=== PATIENT | male | born 1985 | race Caucasian/White ===

== ENCOUNTER 2016-12-31 04:58 | Emergency (ER) | payer MEDICAID, OTHER ==
[~2016-12-31] VITALS: Ht 175.3 cm; Wt 68.0 kg
[2016-12-31 06:37] LABS: BASOPHILS % 0.5 % (0.0-2.0); EOSINOPHILS % 5.4 % (0.0-5.0); HEMATOCRIT. 41.8 % (42.0-52.0); HEMOGLOBIN. 14.6 g/dL (14.0-18.0); LYMPHOCYTES % 24.5 % (20.0-50.0); MEAN CORPUSCULAR HEMOGLOBIN 32.5 pg (28.0-32.0); MEAN CORPUSCULAR VOLUME 93.2 fL (80.0-94.0); MONOCYTES % 11.6 % (2.0-8.0); PLATELET 217 x1000/uL (130-400); RED BLOOD CELL COUNT 4.49 mill/uL (4.7-6.1); RED CELL DISTRIBUTION WIDTH 13.6 % (11.6-14.6)
[2016-12-31 06:52] LABS: CARBON DIOXIDE 27 mEq/L (21-32); CHLORIDE 108 mEq/L (98-107); ETHANOL BLOOD < 10 mg/dL
[2016-12-31 07:00] VITALS: BP 118/81
[2016-12-31 07:29] LABS: CLARITY URINE CLEAR (CLEAR); COLOR URINE YELLOW (YELLOW); GLUCOSE URINE NEGATIVE (NEGATIVE); KETONES URINE TRACE (NEGATIVE); LEUKOCYTE ESTERASE URINE NEGATIVE (NEGATIVE); NITRITE URINE NEGATIVE (NEGATIVE); OCCULT BLOOD URINE NEGATIVE (NEGATIVE); PROTEIN URINE NEGATIVE (NEGATIVE); SPECIFIC GRAVITY URINE 1.029 (1.005-1.030)
[2016-12-31 08:08] LABS: *AMPHETAMINES SCREEN URINE PRESUMTIVE POSITIVE (NEGATIVE); *BARBITURATES SCREEN URINE NEGATIVE (NEGATIVE); *BENZODIAZEPINES SCREEN URINE NEGATIVE (NEGATIVE); *COCAINE SCREEN URINE NEGATIVE (NEGATIVE); CANNABINOID URINE SCREEN PRESUMTIVE POSITIVE (NEGATIVE); METHADONE URINE SCREEN NEGATIVE (NEGATIVE); OPIATES URINE SCREEN NEGATIVE (NEGATIVE); PHENCYCLIDINE URINE SCREEN NEGATIVE (NEGATIVE)
== END 2016-12-31 07:58 | disposition home or self-care (01) ==
LOC: ER 05:09
DX: F15.982 Other stimulant use, unspecified with stimulant-induced sleep disorder (principal); F17.200 Nicotine dependence, unspecified, uncomplicated
CPT/HCPCS: 36415; 80053; 80305; 81003; 85025; 99284; G0482

== ENCOUNTER 2017-02-10 22:20 | Emergency (ER) | payer MEDICAID ==
[~2017-02-10] VITALS: Ht 172.7 cm; Wt 59.0 kg
[2017-02-11] MEDS: IBUPROFEN 600MG TABLET PO ONE (09:52)
[2017-02-11 10:06] LABS: BASOPHILS % 0.8 % (0.0-2.0); EOSINOPHILS % 6.4 % (0.0-5.0); HEMATOCRIT. 42.7 % (42.0-52.0); HEMOGLOBIN. 14.4 g/dL (14.0-18.0); LYMPHOCYTES % 29.5 % (20.0-50.0); MEAN CORPUSCULAR HEMOGLOBIN 31.6 pg (28.0-32.0); MEAN CORPUSCULAR VOLUME 93.7 fL (80.0-94.0); MEAN PLATELET VOLUME 7.9 fl (7.4-10.4); MONOCYTES % 8.1 % (2.0-8.0); NEUTROPHILS % 55.2 % (40.0-76.0); PLATELET 267 x1000/uL (130-400); RED BLOOD CELL COUNT 4.56 mill/uL (4.7-6.1); RED CELL DISTRIBUTION WIDTH 13.5 % (11.6-14.6)
[2017-02-11 10:15] LABS: CARBON DIOXIDE 30 mEq/L (21-32); CHLORIDE 107 mEq/L (98-107); ETHANOL BLOOD < 10 mg/dL
[2017-02-11 10:26] LABS: *AMPHETAMINES SCREEN URINE PRESUMTIVE POSITIVE (NEGATIVE); *BARBITURATES SCREEN URINE NEGATIVE (NEGATIVE); *BENZODIAZEPINES SCREEN URINE NEGATIVE (NEGATIVE); *COCAINE SCREEN URINE NEGATIVE (NEGATIVE); CANNABINOID URINE SCREEN PRESUMTIVE POSITIVE (NEGATIVE); METHADONE URINE SCREEN NEGATIVE (NEGATIVE); OPIATES URINE SCREEN NEGATIVE (NEGATIVE); PHENCYCLIDINE URINE SCREEN NEGATIVE (NEGATIVE)
[2017-02-11] MEDS: BUPROPION HCL 100MG SR TABLET PO ONE (14:11)
[2017-02-11 22:14] VITALS: BP 104/80
== END 2017-02-11 22:59 ==
LOC: ER 22:41
DX: F31.9 Bipolar disorder, unspecified (principal); F15.10 Other stimulant abuse, uncomplicated; F14.10 Cocaine abuse, uncomplicated; R45.851 Suicidal ideations; H57.13 Ocular pain, bilateral; Z96.649 Presence of unspecified artificial hip joint
CPT/HCPCS: 36415; 80048; 80305; 80307; 80329; 85025; 99285; G0482

== ENCOUNTER 2017-03-13 05:33 | Emergency (ER) | payer MEDICAID, OTHER ==
[~2017-03-13] VITALS: Ht 175.3 cm; Wt 66.0 kg
[2017-03-13 07:07] LABS: HEMATOCRIT. 41.2 % (42.0-52.0); HEMOGLOBIN. 13.6 g/dL (14.0-18.0); MEAN CORPUSCULAR HEMOGLOBIN 30.4 pg (28.0-32.0); MEAN CORPUSCULAR VOLUME 92.3 fL (80.0-94.0); MEAN PLATELET VOLUME 8.1 fl (7.4-10.4); PLATELET 242 x1000/uL (130-400); RED BLOOD CELL COUNT 4.47 mill/uL (4.7-6.1); RED CELL DISTRIBUTION WIDTH 13.3 % (11.6-14.6)
[2017-03-13 07:18] LABS: CARBON DIOXIDE 29 mEq/L (21-32); CHLORIDE 104 mEq/L (98-107); ETHANOL BLOOD < 10 mg/dL
[2017-03-13 07:31] LABS: PLATELET ESTIMATE NORMAL
[2017-03-13 08:37] LABS: *AMPHETAMINES SCREEN URINE NEGATIVE (NEGATIVE); *BARBITURATES SCREEN URINE NEGATIVE (NEGATIVE); *BENZODIAZEPINES SCREEN URINE NEGATIVE (NEGATIVE); *COCAINE SCREEN URINE NEGATIVE (NEGATIVE); CANNABINOID URINE SCREEN NEGATIVE (NEGATIVE); METHADONE URINE SCREEN NEGATIVE (NEGATIVE); OPIATES URINE SCREEN NEGATIVE (NEGATIVE); PHENCYCLIDINE URINE SCREEN NEGATIVE (NEGATIVE)
[2017-03-13 09:23] LABS: CLARITY URINE CLEAR (CLEAR); COLOR URINE YELLOW (YELLOW); KETONES URINE NEGATIVE (NEGATIVE); LEUKOCYTE ESTERASE URINE NEGATIVE (NEGATIVE); NITRITE URINE NEGATIVE (NEGATIVE); OCCULT BLOOD URINE NEGATIVE (NEGATIVE); PH URINE 8.5 (4.5-8.0); PROTEIN URINE NEGATIVE (NEGATIVE); SPECIFIC GRAVITY URINE 1.009 (1.005-1.030); UROBILINOGEN URINE 0.2 E.U./dL (0.2-1.0)
[2017-03-13] MEDS ORDERED: ACETAMINOPHEN 325MG TABLET PO ONE (17:00)
[2017-03-14] MEDS ORDERED: IBUPROFEN 600MG TABLET PO ONE (02:00)
[2017-03-14 02:49] LABS: BASOPHILS % 0.4 % (0.0-2.0); EOSINOPHILS % 2.2 % (0.0-5.0); HEMATOCRIT. 42.2 % (42.0-52.0); HEMOGLOBIN. 14.4 g/dL (14.0-18.0); LYMPHOCYTES % 13.8 % (20.0-50.0); MEAN CORPUSCULAR HEMOGLOBIN 31.4 pg (28.0-32.0); MEAN CORPUSCULAR VOLUME 92.2 fL (80.0-94.0); MEAN PLATELET VOLUME 8.1 fl (7.4-10.4); MONOCYTES % 7.6 % (2.0-8.0); PLATELET 235 x1000/uL (130-400); RED BLOOD CELL COUNT 4.57 mill/uL (4.7-6.1); RED CELL DISTRIBUTION WIDTH 13.3 % (11.6-14.6)
[2017-03-14 02:55] LABS: CHLORIDE 103 mEq/L (98-107)
[2017-03-14 03:04] LABS: CARBON DIOXIDE 28 mEq/L (21-32)
[2017-03-14] MEDS ORDERED: FLUOXETINE HCL 20MG CAPSULE PO ONE (08:15)
[2017-03-14 10:35] VITALS: BP 115/82
== END 2017-03-14 10:40 | disposition home or self-care (01) ==
LOC: ER 05:33
DX: F32.9 Major depressive disorder, single episode, unspecified (principal); R45.851 Suicidal ideations; F17.200 Nicotine dependence, unspecified, uncomplicated; Z96.649 Presence of unspecified artificial hip joint; W26.8XXA Contact with other sharp object(s), not elsewhere classified, initial encounter; Y93.89 Activity, other specified; Y92.89 Other specified places as the place of occurrence of the external cause; Y99.8 Other external cause status
CPT/HCPCS: 36415; 80048; 80053; 80305; 80307; 80329; 81003; 85025; 87804; 99284; G0482

== ENCOUNTER 2017-05-14 15:20 | Emergency (ER) | payer MEDICAID, OTHER ==
[~2017-05-14] VITALS: Ht 175.3 cm; Wt 66.0 kg
[2017-05-14] MEDS ORDERED: FLUO20CA33 PO (15:45)
[2017-05-14] MEDS ORDERED: TRAZ-129 PO (15:45)
[2017-05-14 16:59] LABS: BASOPHILS % 0.5 % (0.0-2.0); EOSINOPHILS % 4.8 % (0.0-5.0); HEMATOCRIT. 43.6 % (42.0-52.0); HEMOGLOBIN. 14.6 g/dL (14.0-18.0); LYMPHOCYTES % 28.2 % (20.0-50.0); MEAN CORPUSCULAR VOLUME 89.9 fL (80.0-94.0); MEAN PLATELET VOLUME 8.1 fl (7.4-10.4); MONOCYTES % 10.5 % (2.0-8.0); PLATELET 303 x1000/uL (130-400); RED BLOOD CELL COUNT 4.85 mill/uL (4.7-6.1); RED CELL DISTRIBUTION WIDTH 13.8 % (11.6-14.6)
[2017-05-14 17:10] LABS: CHLORIDE 106 mEq/L (98-107)
[2017-05-14 17:15] LABS: ETHANOL BLOOD < 10 mg/dL
[2017-05-14 20:37] LABS: CLARITY URINE CLEAR (CLEAR); COLOR URINE YELLOW (YELLOW); KETONES URINE NEGATIVE (NEGATIVE); LEUKOCYTE ESTERASE URINE NEGATIVE (NEGATIVE); NITRITE URINE NEGATIVE (NEGATIVE); OCCULT BLOOD URINE NEGATIVE (NEGATIVE); PH URINE 5.5 (4.5-8.0); PROTEIN URINE NEGATIVE (NEGATIVE); SPECIFIC GRAVITY URINE 1.031 (1.005-1.030)
[2017-05-14 20:53] LABS: *AMPHETAMINES SCREEN URINE PRESUMTIVE POSITIVE (NEGATIVE); *BARBITURATES SCREEN URINE NEGATIVE (NEGATIVE); *BENZODIAZEPINES SCREEN URINE NEGATIVE (NEGATIVE); *COCAINE SCREEN URINE NEGATIVE (NEGATIVE); CANNABINOID URINE SCREEN PRESUMTIVE POSITIVE (NEGATIVE); METHADONE URINE SCREEN NEGATIVE (NEGATIVE); OPIATES URINE SCREEN NEGATIVE (NEGATIVE); PHENCYCLIDINE URINE SCREEN NEGATIVE (NEGATIVE)
[2017-05-15 13:00] VITALS: BP 122/77
== END 2017-05-15 13:38 | disposition home or self-care (01) ==
LOC: ER 16:04
DX: F31.9 Bipolar disorder, unspecified (principal); R44.0 Auditory hallucinations; R45.851 Suicidal ideations; Z96.649 Presence of unspecified artificial hip joint
CPT/HCPCS: 36415; 80053; 80305; 80307; 80329; 81003; 85025; 99284; G0482

== ENCOUNTER 2017-05-29 20:34 | Emergency (ER) | payer MEDICAID ==
[~2017-05-29] VITALS: Ht 175.3 cm; Wt 68.0 kg
[~2017-05-29 20:34] MED LIST: FLUO20CA33 PO; TRAZ-129 PO
[2017-05-30] MEDS ORDERED: BACITRACIN ZINC OINT UDPKT TOP ONE (06:30)
[2017-05-30 06:33] LABS: BASOPHILS % 0.6 % (0.0-2.0); EOSINOPHILS % 5.9 % (0.0-5.0); HEMATOCRIT. 40.4 % (42.0-52.0); HEMOGLOBIN. 13.6 g/dL (14.0-18.0); LYMPHOCYTES % 27.8 % (20.0-50.0); MEAN CORPUSCULAR HEMOGLOBIN 30.5 pg (28.0-32.0); MEAN CORPUSCULAR VOLUME 90.8 fL (80.0-94.0); MEAN PLATELET VOLUME 8.1 fl (7.4-10.4); MONOCYTES % 9.4 % (2.0-8.0); NEUTROPHILS % 56.3 % (40.0-76.0); PLATELET 229 x1000/uL (130-400); RED BLOOD CELL COUNT 4.45 mill/uL (4.7-6.1); RED CELL DISTRIBUTION WIDTH 14.6 % (11.6-14.6)
[2017-05-30 06:40] LABS: CHLORIDE 105 mEq/L (98-107)
[2017-05-30 06:44] LABS: ETHANOL BLOOD < 10 mg/dL
[2017-05-30 08:24] LABS: CLARITY URINE CLEAR (CLEAR); COLOR URINE YELLOW (YELLOW); KETONES URINE NEGATIVE (NEGATIVE); LEUKOCYTE ESTERASE URINE NEGATIVE (NEGATIVE); NITRITE URINE NEGATIVE (NEGATIVE); OCCULT BLOOD URINE NEGATIVE (NEGATIVE); PH URINE 5.5 (4.5-8.0); PROTEIN URINE NEGATIVE (NEGATIVE); SPECIFIC GRAVITY URINE 1.034 (1.005-1.030); UROBILINOGEN URINE 0.2 E.U./dL (0.2-1.0)
[2017-05-30 09:07] LABS: *AMPHETAMINES SCREEN URINE PRESUMTIVE POSITIVE (NEGATIVE)
[2017-05-30 09:08] LABS: *BARBITURATES SCREEN URINE NEGATIVE (NEGATIVE); *BENZODIAZEPINES SCREEN URINE NEGATIVE (NEGATIVE); *COCAINE SCREEN URINE NEGATIVE (NEGATIVE); METHADONE URINE SCREEN NEGATIVE (NEGATIVE); OPIATES URINE SCREEN NEGATIVE (NEGATIVE); PHENCYCLIDINE URINE SCREEN NEGATIVE (NEGATIVE)
[2017-05-30 09:09] LABS: CANNABINOID URINE SCREEN PRESUMTIVE POSITIVE (NEGATIVE)
[2017-05-30 17:50] VITALS: BP 105/68
== END 2017-05-30 18:31 | disposition home or self-care (01) ==
LOC: ER 20:51
DX: F19.10 Other psychoactive substance abuse, uncomplicated (principal); L98.499 Non-pressure chronic ulcer of skin of other sites with unspecified severity; R44.0 Auditory hallucinations; F31.9 Bipolar disorder, unspecified
CPT/HCPCS: 36415; 80053; 80305; 80307; 80329; 81003; 85025; 99284; G0482

== ENCOUNTER 2017-07-26 10:12 | Emergency (ER) | payer MEDICAID ==
[~2017-07-26] VITALS: Ht 162.6 cm; Wt 66.0 kg
[2017-07-26 10:22] VITALS: BP 117/94
[2017-07-26] MEDS ORDERED: ACETAMINOPHEN 500MG TABLET PO ONE (11:15)
== END 2017-07-26 12:20 | disposition home or self-care (01) ==
LOC: ER 10:12
DX: M25.552 Pain in left hip (principal); M79.652 Pain in left thigh; W01.0XXA Fall on same level from slipping, tripping and stumbling without subsequent striking against object, initial encounter; Y93.89 Activity, other specified; Y92.89 Other specified places as the place of occurrence of the external cause; F17.210 Nicotine dependence, cigarettes, uncomplicated; F31.9 Bipolar disorder, unspecified
CPT/HCPCS: 99283

== ENCOUNTER 2023-05-05 22:36 | Emergency (ER) | payer MEDICAID ==
[~2023-05-05] VITALS: Ht 177.8 cm; Wt 174.0 kg
[~2023-05-05 22:36] MED LIST changes: -TRAZ-129 PO; +TRAZ-251 PO
[2023-05-05 23:45] VITALS: BP 130/89; PULSE 101; RESP 18; O2SAT 97
[2023-05-06] MEDS ORDERED: LEVO5DRO LEFTEYE (01:55)
== END 2023-05-06 02:19 | disposition home or self-care (01) ==
LOC: ER 22:53
DX: H10.32 Unspecified acute conjunctivitis, left eye (principal)
CPT/HCPCS: 99283

== ENCOUNTER 2024-02-28 18:34 | Emergency (ER) | payer MEDICAID ==
[~2024-02-28] VITALS: Ht 175.3 cm; Wt 73.0 kg
[~2024-02-28 18:34] MED LIST changes: +LEVO5DRO LEFTEYE
[2024-02-28 18:53] VITALS: BP 135/87; TEMP 98.7; O2SAT 99
[2024-02-28 18:55] VITALS: PULSE 85; RESP 19; O2SAT 98
[2024-02-28] MEDS ORDERED: CEPH500T MT (19:33)
[2024-02-28] MEDS ORDERED: MUPI1OIN4 TP (19:33)
[2024-02-28] MEDS ORDERED: SULF1TAB48 MT (19:33)
== END 2024-02-28 20:37 | disposition home or self-care (01) ==
LOC: ER 18:34
DX: J34.0 Abscess, furuncle and carbuncle of nose (principal); F31.9 Bipolar disorder, unspecified; Z96.649 Presence of unspecified artificial hip joint
CPT/HCPCS: 99283

== ENCOUNTER 2024-04-13 09:52 | Emergency (ER) | payer MEDICAID ==
[~2024-04-13] VITALS: Ht 175.3 cm; Wt 73.0 kg
[~2024-04-13 09:52] MED LIST changes: +CEPH500T MT; +MUPI1OIN4 TP; +SULF1TAB48 MT
[2024-04-13 10:00] VITALS: O2SAT 99
[2024-04-13] MEDS ORDERED: PENICILLIN G BENZATHINE 1,200,000 UNITS/2ML SYR IM ONE (10:15)
[2024-04-13] MEDS: PENICILLIN G BENZATHINE 1,200,000 UNITS/2ML SYR IM NR (10:31)
[2024-04-13] MEDS ORDERED: BACITRACIN 14GM TUBE TOP ONE (10:45)
[2024-04-13] MEDS: BACITRACIN ZINC OINT UDPKT TOP ONE (10:46)
[2024-04-13] MEDS ORDERED: MUPI1OIN4 TP (10:55)
[2024-04-13] MEDS ORDERED: SULF1TAB48 MT (10:55)
[2024-04-13] MEDS ORDERED: PERM60CR4 TP (10:55)
[2024-04-13 10:59] VITALS: BP 115/70; PULSE 98; RESP 16; TEMP 36.8; O2SAT 99
== END 2024-04-13 11:02 | disposition home or self-care (01) ==
LOC: ER 09:52
DX: L03.113 Cellulitis of right upper limb (principal); J02.0 Streptococcal pharyngitis; F10.90 Alcohol use, unspecified, uncomplicated; Y90.9 Presence of alcohol in blood, level not specified
CPT/HCPCS: 99283; 73100; 96372; J0561

== ENCOUNTER 2024-08-04 18:21 | Emergency (ER) | payer MEDICAID ==
[~2024-08-04] VITALS: Ht 175.3 cm; Wt 70.0 kg
[~2024-08-04 18:21] MED LIST changes: +PERM60CR4 TP
[2024-08-04 18:36] VITALS: O2SAT 99
[2024-08-04] MEDS ORDERED: DOCU-138 MT (19:57)
[2024-08-04] MEDS ORDERED: POLY17PO3 MT (19:57)
[2024-08-04 20:25] VITALS: BP 120/80; PULSE 100; RESP 20; TEMP 36.8; O2SAT 99
== END 2024-08-04 20:25 | disposition home or self-care (01) ==
LOC: ER 18:21
DX: K59.00 Constipation, unspecified (principal); Z79.899 Other long term (current) drug therapy; Z98.890 Other specified postprocedural states
CPT/HCPCS: 99282